=== PATIENT | female | born 2005 | race Caucasian/White ===

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

== ENCOUNTER → 2023-01-07 | Outpatient (REF) | payer OTHER ==
[~2023-01-07] MED LIST: ENAL1TAB48; OMEP1CAP73
[2023-01-07 20:29] LABS: CHLAMYDIA DNA AMPLIFICATION NEGATIVE (NEGATIVE); GC DNA AMPLIFICATION NEGATIVE (NEGATIVE)
== END ==
LOC: M LAB REF 18:42
PROVIDERS: ATTEND Physician Assistant Medical
DX: A59.9 Trichomoniasis, unspecified (principal)

== ENCOUNTER 2023-07-23 16:16 | Emergency (ER) | payer OTHER ==
[~2023-07-23] VITALS: Ht 185.4 cm; Wt 73.2 kg
[2023-07-23] MEDS: ONDANSETRON 4MG TAB PO ONE (17:29)
[2023-07-23] MEDS: IBUPROFEN 800 MG TAB PO ONE (18:42)
[2023-07-23 19:17] VITALS: BP 98/61; TEMP 97; O2SAT 100
== END 2023-07-23 19:27 | disposition home or self-care (01) ==
LOC: M ED 16:16
DX: S06.0X0A Concussion without loss of consciousness, initial encounter (principal); J01.00 Acute maxillary sinusitis, unspecified; W01.190A Fall on same level from slipping, tripping and stumbling with subsequent striking against furniture, initial encounter; F10.10 Alcohol abuse, uncomplicated; Y92.9 Unspecified place or not applicable; Y93.89 Activity, other specified; Y99.0 Civilian activity done for income or pay; Z79.899 Other long term (current) drug therapy

== ENCOUNTER → 2024-09-25 | Outpatient (CLI) | payer OTHER ==
[~2024-09-25] MED LIST changes: +PROHANCE 279.3MG/ML 15ML VIAL ONE
== END ==
LOC: M PLAIMG 14:51
PROVIDERS: ATTEND Orthopaedic Surgery Hand Surgery
DX: R22.31 Localized swelling, mass and lump, right upper limb (principal)
CPT/HCPCS: 73223; A9576

== ENCOUNTER 2024-10-20 09:03 | Day surgery (SDC) | payer OTHER ==
[~2024-10-20] VITALS: Ht 185.4 cm; Wt 67.8 kg
[~2024-10-20 09:03] MED LIST changes: +ACETAMINOPHEN 1000MG/100ML IV BAG As Ordered ONE; -ENAL1TAB48; +ENAL1TAB48 PO; +LIDOCAINE 2% 100 MG/5 ML SDV (FOR ANES.) As Ordered ONE; +MIDAZOLAM INJ 2 MG/2 ML VIAL As Ordered ONE; -OMEP1CAP73; +OMEP1CAP73 PO; +ONDANSETRON 4MG 2ML VIAL As Ordered ONE; -PROHANCE 279.3MG/ML 15ML VIAL ONE; +dexAMETHasone 4 MG/ML 1 ML VIAL As Ordered ONE
[2024-10-20] MEDS ORDERED: LR 1,000 ML IV SCH ×2 (09:35→11:30)
[2024-10-20] MEDS: ceFAZolin SOD 2 GM IV ONCE IV ONE (10:45)
[2024-10-20] MEDS ORDERED: KETOROLAC 30 MG/ML 1 ML VIAL As Ordered ONE (11:00)
[2024-10-20] MEDS ORDERED: HYDROMORPHONE HCL 0.5 MG/0.5 ML SYRINGE IV PRN (11:30)
[2024-10-20] MEDS: ONDANSETRON 4MG 2ML VIAL IV PRN (12:00)
[2024-10-20 13:00] VITALS: BP 105/59; TEMP 97.5; O2SAT 100
== END 2024-10-20 13:18 | disposition home or self-care (01) ==
LOC: M SDC 09:03
PROVIDERS: ATTEND Orthopaedic Surgery Hand Surgery
DX: M67.431 Ganglion, right wrist (principal)
CPT/HCPCS: 25111; 81025; 88305; J0131; J0665; J0690; J1100; J1885; J2250; J2405; J3010